=== PATIENT | female | born 1930 | race Caucasian/White ===

== ENCOUNTER 2016-10-11 11:31 | Inpatient (IN) | payer MEDICARE, OTHER ==
[~2016-10-11] VITALS: Ht 157.5 cm; Wt 85.6 kg
--- NOTE | 2016-10-13 13:48 | CO ---
ADMIT: 10/11/2016 RM/LOC: 502 [facility] MR#: [id number] [address] [address] MELIZA ALARCON [address] [address] [place] [address] Consultation SEX: F AGE: 86 : 1930 Corrected: 10/13/2016 1339 djs DATE OF CONSULTATION: 10/13/2016 ATTENDING PHYSICIAN: Gabriela Garzon CONSULTING PHYSICIAN: Juliana Gilbert MD CHIEF COMPLAINT: 1. Right ankle fracture. 2. Back pain. HISTORY: This 86-year-old, lives alone at home in [place]. She had two falls recently, but the second fall on 10/08/2016, she had immediate pain in the right ankle and her lower back. She was taken to the emergency room in [place] where radiographs showed her bimalleolar right ankle fracture and a possible T7-T8 compression fracture. She was transferred to [facility] on Tuesday and presents now for definitive treatment. MEDICATIONS: Pantoprazole, Xarelto, Propafenone, Lasix, potassium, levothyroxine, lisinopril, iron supplement, magnesium oxide, multivitamin, Tylenol on a p.r.n. basis, tramadol on a p.r.n. basis, and lutein. PAST SURGICAL HISTORY: Bilateral total knee arthroplasty, pacemaker placement, rectal carcinoma, bilateral oophorectomy, endometrial cancer, tonsillectomy, and adenoidectomy. SOCIAL HISTORY: The patient is . She lives alone at her home in [place]. She is a nonsmoker. FAMILY HISTORY: Positive for heart disease. PHYSICAL EXAMINATION: This patient has a mild deformity of the right ankle. 2+ soft tissue swelling and ecchymosis. RADIOGRAPHS: Show a bimalleolar ankle fracture, which is displaced. She also has palpable tenderness over the upper lumbar and lower thoracic spine. ADMIT: 10/11/2016 RM/LOC: 502 [facility] MR#: [id number] [address] [address] MELIZA ALARCON [address] [address] [place] [address] Consultation SEX: F AGE: 86 : 1930 IMPRESSION: 1. Bimalleolar right ankle fracture. 2. T7-T8 compression fracture. RECOMMENDATIONS: 1. I have recommended open reduction internal fixation of right ankle. The risks, benefits, alternatives, as well as potential complications were discussed. 2. After appropriate workup for her compression fracture, she may undergo vertebroplasty. Juliana Gilbert MD/ silvia JOB #: [id number] CC: Gabriela Garzon, Attending Physician Gabriela Garzon, Family Physician Corrected: 10/13/2016 1339 djanne
[2016-10-18] MEDS ORDERED: RYTHMOL225 MG PO (12:17)
[2016-10-18] MEDS ORDERED: SYNTHROID DP0.125 MG PO (12:19)
[2016-10-18] MEDS ORDERED: XARELTO15 MG PO (12:19)
[2016-10-18] MEDS ORDERED: DURAGESIC1 EAC2 TD (12:23)
[2016-10-18] MEDS ORDERED: MAALOX DPS30 ML PO (12:23)
[2016-10-18] MEDS ORDERED: TYLENOL DPS325 MG PO (12:24)
[2016-10-18] MEDS ORDERED: MILK OF MAGNESI10 ML PO (12:24)
[2016-10-18] MEDS ORDERED: ULTRAM DPS50 MG PO (12:24)
--- NOTE | 2016-10-18 13:44 | OR ---
ADMIT: 10/11/2016 RM/LOC: 502 [facility] MR#: [id number] [address] [address] MELIZA ALARCON [address] [address] [place] [address] Operative/Delivery Room Report SEX: F AGE: 86 : 1930 Corrected: 10/14/2016 0640 [facility] SURGERY DATE: 10/13/2016 SURGEON: Juliana Gilbert MD PREOPERATIVE DIAGNOSIS: Bimalleolar right ankle fracture. POSTOPERATIVE DIAGNOSIS: Bimalleolar right ankle fracture. PROCEDURE: Open reduction, internal fixation, right ankle. ANESTHESIA: General. ASSISTED BY: DONTRELL Sanchez. ESTIMATED BLOOD LOSS: 25 mL. COMPLICATIONS: None. PROCEDURE: This patient was brought to the operating room. She was given a general anesthetic. The right lower extremity was prepped and draped in the usual sterile fashion. Under tourniquet ischemia, lateral incision was made over the 5th distal fibula. Dissection was carried down to the fracture site with the fracture was reduced. Then, using a [employer] precontoured fibular plate, multiple screws were placed in the distal fragment and 4 locking screws in the proximal fragment. This gave us an anatomic reduction of the lateral malleolus. On the inner side, the patient has more of a small avulsion type fracture constituting more of a ligamentous injury. Therefore, no open reduction was performed on this very small fragment. The tourniquet was released. Hemostasis achieved using electrocautery. Wound thoroughly irrigated. Then, closed with 2-0 Vicryl in the subcutaneous tissue, interrupted 2-0 nylon in the skin. A sterile dressing was applied. The patient was then placed in a posterior splint. Transferred from the operative suite in stable condition. Juliana Gilbert MD/ silvia JOB #: [id number] CC: Gabriela Garzon, Attending Physician Gabriela Garzon, Family Physician Radha Medellin MD Corrected: 10/14/2016 0640 njv
--- NOTE | 2016-10-21 14:22 | ER ---
ADMIT: 10/11/2016 RM/LOC: 502 [facility] MR#: [id number] [address] [address] MELIZA ALARCON [address] [address] [place] [address] Emergency Room Report SEX: F AGE: 86 : 1930 DATE: 10/11/2016 ADDENDUM: CHIEF COMPLAINT: Known right ankle fracture and compression fractures of T7- T8. She is actually a transfer from [place]. They did speak with Dr. Gilbert on Tuesday. She was to follow up for the fracture repair this week, but the pain is too uncontrollable that she was not able to go home. So, she was transferred here. I did speak with Dr. Garzon. She is admitting as [facility]. IMPRESSION: 1. Right tib-fib fracture. 2. Compression fracture of T7-T8. DISPOSITION: She is stable at admit. DONTRELL Alvarez / Danny Mejia MD / silvia JOB #: [id number] CC: Gabriela Garzon MD, Attending Physician Gabriela Garzon MD, Family Physician
--- NOTE | 2016-10-25 08:41 | HP ---
ADMIT: 10/11/2016 RM/LOC: 502 [facility] MR#: [id number] [facility] [address] [place] [address] MELIZA ALARCON [address] [place] [address] History and Physical SEX: F AGE: 86 : 1930 DATE OF SERVICE: CHIEF COMPLAINT: Right ankle bimalleolar fracture and T7-T8 compression fractures after a fall with pain in need of repair. HISTORY OF PRESENT ILLNESS: Meliza is a delightful 86-year-old white female, who resides alone at home. She appears to be very independent. On the week prior to her admission on , she fell when she got up to lock the door, but not really sure why she just went down after falling backwards. She was able to recover from that and was doing well until 10/08/2016. At that time, she had an episode again where she fell backwards and onto the floor. That fall she was not so fortunate. She used her lifeline to summon family members. She tried to wait until the end of the weekend to see her provider, but the pain was too intense. She presented to the emergency room in [place], where she was found to have a right bimalleolar fracture and reportedly T7-T8 compression fractures, which were likely new. Dr. Gilbert was contacted at that time. He accepted for transfer on the day of admission with the hopes of getting her back evaluated and repaired and then moving on to her ankle. I was then consulted to take over the case. On arrival, I had verbally asked for an MRI as I was not aware that she had a pacemaker. Unfortunately, she was not able to have this done and a CAT scan will be ordered instead. This unfortunately caused some I believe that this unfortunately continue on with. We are currently in the process of evaluating and treating. PAST MEDICAL HISTORY: Right bimalleolar ankle fracture with T7-T8 compression fractures after a fall on 10/23. Bilateral TKA in the past. Sick sinus syndrome with pacemaker-follows with Dr. Nelson. Atrial fibrillation. 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 T and A. Bilateral oophorectomy 09/30/2005 followed by endometrial cancer 01/14-surgery in [place]. MEDICATIONS: Include: 1. Pantoprazole 40 mg daily. 2. Xarelto 15 mg daily. 3. Propafenone 225 t.i.d. 4. Lasix 20 daily. 5. Potassium 10 daily. 6. Levothyroxine 300 mcg daily. 7. Lisinopril 5 mg, 1-1/2 b.i.d. 8. Iron 324 b.i.d. 9. Magnesium oxide 400 b.i.d. 10.Multiple vitamin daily. 11.Acidophilus supplement every day. 12.Lutein 20 mg daily. 13.Acetaminophen 500 mg q.6 p.r.n. 14.Tramadol 50 mg q.6. ADMIT: 10/11/2016 RM/LOC: 502 [facility] MR#: [id number] [address] [address] MELIZA ALARCON [address] [place] [address] History and Physical SEX: F AGE: 86 : 1930 15.Hydromorphone p.r.n. ALLERGIES: NONE KNOWN. SOCIAL HISTORY: She is . Currently, lives alone. 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 Nonsmoker. Nondrinker. Multiple jobs in the past, but none recently. FAMILY HISTORY: Brother with heart disease in his 60s. Mother and dad also with heart disease in older years. No hypertension. No cancer. REVIEW OF SYSTEMS: In a lot of pain and likely spasm from her presumed fractures. PHYSICAL EXAMINATION: VITAL SIGNS: Temp 97.9, pulse 69, respirations 16, blood pressure 147/71, and weight was 194. GENERAL: This is a well-developed, well-nourished woman, lying on her right side, just returning from CAT scan, who is visibly uncomfortable. SKIN: Warm and dry. HEENT: Normocephalic and atraumatic. Anicteric. NECK: Supple. LUNGS: Diminished, but clear. CARDIOVASCULAR: Pretty regular. Pacemaker felt 2/6 murmur. ABDOMEN: Soft. /RECTAL: Deferred. EXTREMITIES: With 1+ edema and boot on right foot. IMPRESSION: 1. Right bimalleolar ankle fracture. 2. Compression fracture at T7-T8, muscle spasm, pain, inability to ambulate. 3. Atrial fibrillation. 4. Sick sinus syndrome, on pacemaker. 5. Hypothyroid, not now, low TSH. 6. Urinary tract infection. DISCUSSION: She is a little over supplemented at this time. We will go ahead and decrease her thyroid. Urine looked like it had a little bit of an infection. I did go ahead and order some Rocephin for this reason. We really need to get this vertebroplasty done if indicated. She is miserable and was unable to move without severe pain. This makes me a little concern about loose fragments. We will arrange for some Valium for muscle spasms and continue the pain medications. We will go ahead give some Rocephin. PLAN: ADMIT: 10/11/2016 RM/LOC: 502 [facility] MR#: [id number] 2620 [facility] [address] [place], [place] [address] MELIZA ALARCON [address] [address] [place] [address] History and Physical SEX: F AGE: 86 : [address] Gilbert. 2. Contact IR about doing vertebro/kyphoplasty if indicated. 3. Social work for swing bed to get back home as soon as possible. 4. Rocephin. 5. Decrease Synthroid to 25 mcg. 6. See chart. Gabriela Garzon MD/ silvia JOB #: [id number] CC: Gabriela Garzon MD, Attending Physician Gabriela Garzon MD, Family Physician MD Radha Weems MD Daniel J McGowan, MD
--- NOTE | 2016-11-01 07:53 | DS ---
ADMIT: 10/11/2016 RM/LOC: 502 [facility] MR#: [id number] [address] [address] MELIZA ALARCON [address] [address] [place] [address] Discharge Summary SEX: F AGE: 86 : 1930 ADMISSION DATE: 10/11/2016 DISCHARGE DATE: 10/17/2016 DISCHARGE DIAGNOSES: 1. Bimalleolar right ankle fracture, status post ORIF (open reduction and internal fixation). 2. T9 acute compression fracture. 3. History of atrial fibrillation, on chronic anticoagulation. 4. Status post bilateral total knee arthroplasty in the past. 5. Sick sinus syndrome, status post pacemaker. 6. Rectal carcinoma with ostomy. 7. Status post bilateral oophorectomy and hysterectomy for endometrial cancer. 8. Hypothyroidism. 9. Gastroesophageal reflux disease. HOSPITAL COURSE: The patient was admitted. She did undergo surgery for her ankle fracture. Postop, she was continuing to have quite a bit of pain in her back; therefore, she had a bone scan, which did show evidence of an acute T9 compression fracture. She had a vertebroplasty and tolerated this without any complications. She was still having quite a bit of pain requiring a Duragesic patch 25 mcg for pain control as well as oxycodone and tramadol. In general though, the patient's health was doing quite well. Her vital signs were fine. She was taking p.o. She had some out her ostomy. She was otherwise on 1 L of oxygen during the day and 2 L of oxygen at night and she was doing fine. The plan was for her to be discharged to [facility] bed. Her meds were going to be: 1. Micro-K 10 mEq p.o. daily. 2. Lasix 20 mg p.o. daily. 3. Protonix 40 mg p.o. daily. 4. Rythmol 225 p.o. q.8 hours. 5. Synthroid 250 mcg p.o. daily. 6. Xarelto 15 mg p.o. daily. 7. Zestril 7.5 p.o. b.i.d. 8. Duragesic 25 mcg, change every 3 hours. 9. Oxycodone 5 mg p.o. q.6 hours with one p.o. q.6 hours p.r.n. 10.Tramadol p.r.n. Otherwise she is to have a CBC in one week. Follow up with her PCP in one week. Radha Arredondo MD/ njfrancisco JOB #: [id number] CC: Gabriela Garzon MD, Attending Physician Gabriela Garzon MD, Family Physician
[2017-02-08] MEDS ORDERED: CORDARONE DPS200 MG PO (18:39)
[2017-02-08] MEDS ORDERED: SYNTHROID125 MCG PO (18:39)
[2017-02-08] MEDS ORDERED: XARELTO10 MG PO (18:40)
[2017-02-08] MEDS ORDERED: LOPRESSOR DPS50 MG PO (18:40)
[2017-02-08] MEDS ORDERED: SENOKOT-S TABL1 EACH PO (18:40)
[2017-02-08] MEDS ORDERED: LASIX DPS20 MG PO (18:40)
[2017-02-08] MEDS ORDERED: MICRO-K DPS10 MEQ PO (18:40)
[2017-02-08] MEDS ORDERED: COLACE-DPS100 MG PO (18:41)
[2017-02-08] MEDS ORDERED: PROTONIX40 MG PO (18:41)
[2017-02-08] MEDS ORDERED: DITROPAN XL5 MG PO (18:42)
[2017-02-08] MEDS ORDERED: MAGNESIUM DR64 MG PO (18:42)
[2017-02-08] MEDS ORDERED: ZESTRIL5 MG PO (18:43)
[2017-02-08] MEDS ORDERED: PERCOCET 5-3251 EACH PO (18:43)
== END 2016-10-17 11:27 | DRG 493 ==
LOC: ER 11:31 → 5MS 12:30
PROVIDERS: ADMIT Internal Medicine
DX: S82.841A Displaced bimalleolar fracture of right lower leg, initial encounter for closed fracture (principal); N39.0 Urinary tract infection, site not specified; S22.079A Unspecified fracture of T9-T10 vertebra, initial encounter for closed fracture; E03.9 Hypothyroidism, unspecified; M62.830 Muscle spasm of back; R09.02 Hypoxemia; D64.9 Anemia, unspecified; K21.9 Gastro-esophageal reflux disease without esophagitis; I48.91 Unspecified atrial fibrillation; W19.XXXA Unspecified fall, initial encounter; Z95.0 Presence of cardiac pacemaker; Z96.653 Presence of artificial knee joint, bilateral; Z85.048 Personal history of other malignant neoplasm of rectum, rectosigmoid junction, and anus; Z93.3 Colostomy status; Z85.42 Personal history of malignant neoplasm of other parts of uterus; Z79.01 Long term (current) use of anticoagulants